=== PATIENT | female | born 1995 | race Caucasian/White ===

== ENCOUNTER 2019-05-26 14:46 | Outpatient (CLI) | payer OTHER ==
[~2019-05-26] VITALS: Ht 171.4 cm; Wt 97.9 kg
[2019-05-26] MEDS ORDERED: FLINCHW16 PO (15:14)
[2019-05-26 15:19] VITALS: BP 113/60
[2019-05-26 15:20] LABS: HEMOGLOBIN 11.2 g/dl (12.0-15.5); MEAN CORPUSCULAR HEMOGLOBIN 30.5 pg (27.0-33.0); MEAN CORPUSCULAR HGB CONC 32.9 g/dl (32.0-36.5); MEAN CORPUSCULAR VOLUME 92.6 fl (80.0-96.0); PLATELET COUNT, AUTOMATED 162 10^3/uL (150-450); RED BLOOD COUNT 3.67 10^6/uL (4.00-5.40); WHITE BLOOD COUNT 9.2 10^3/uL (4.0-10.0)
[2019-05-26 17:50] VITALS: BP 105/58
--- NOTE | 2019-05-26 17:52 | REP ---
HISTORY: Trauma. Multiple ultrasonographic images of the gravid uterus show a single living intrauterine gestation in the cephalic presentation. Doppler interrogation of the heart shows a heart rate of 161 beats per minute. The subjective amniotic fluid volume is within normal limits. Doppler interrogation of the umbilical artery shows an AB ratio of 2.29. This is just below the lower limit of normal at 2.35. The placenta is anterior and not low lying. The cervix measures 3.8 cm and is closed. The calculated amniotic fluid index is 13.0 with an expected range of 8.5 to 24.3. biophysical profile score: Breathing 2 Movement 2 Tone 2 AFV 2 Total 05/18 IMPRESSION: Limited OB ultrasound as described above, showing no evidence of an acute abnormality. Electronically Signed by Hernandez Lombardi DO 05/29/2019 12:39 P
--- NOTE | 2019-05-26 18:13 | IPNPDOC ---
Text Note Date of Service The patient was seen on 05/26/19. NOTE Outpatient 23yo E[place] 07/19/19. Presents @ 32w2d with reports of falling down the entire staircase. Denies bleeding or LOF. Fetus is active NAD VSS Abdomen soft, gravid, nontender BPP /, BETZAIDA 13.0, no evidence abruption or previa Cat I tracing CBC WNL, KB 0.0010. Blood type A+ Reviewed findings with Dr Covarrubias. OK for discharge home once meets criteria. Routine precautions. Appt next week NV VS,Fishbone, I+O VS, Fishbone, I+O Laboratory Tests 05/26/19 15:06 Red Blood Count 3.67 L, Mean Corpuscular Volume 92.6, Mean Corpuscular Hemoglobin 30.5, Mean Corpuscular Hemoglobin Concent 32.9, Red Cell Distribution Width 13.2 Vital Signs Date Time Temp Pulse Resp B/P (MAP) Pulse Ox O2 Delivery O2 Flow Rate FiO2 05/26/19 15:19 98.0 106 16 113/60 (77) Karey Silva CNM May 26, 2019 18:13
[2019-10-06] MEDS ORDERED: PORTTAB PO (09:05)
== END 2019-05-26 18:24 | disposition home or self-care (01) ==
LOC: MERGE 14:46 → M LDO 14:46
PROVIDERS: ATTEND Advanced Practice Midwife
DX: Z04.3 Encounter for examination and observation following other accident (principal); W10.8XXA Fall (on) (from) other stairs and steps, initial encounter; Y92.89 Other specified places as the place of occurrence of the external cause; Y93.89 Activity, other specified; Y99.8 Other external cause status; Z3A.32 32 weeks gestation of pregnancy

== ENCOUNTER → 2019-06-26 | Outpatient (REF) | payer OTHER ==
[~2019-06-26] MED LIST: FLINCHW16 PO
== END ==
LOC: M LAB REF 17:37
PROVIDERS: ATTEND Advanced Practice Midwife
DX: Z34.83 Encounter for supervision of other normal pregnancy, third trimester (principal)

== ENCOUNTER 2019-07-13 10:26 | Inpatient (IN) | payer OTHER ==
[2019-07-13] VITALS (12 sets, daily range): BP systolic 113–141; BP diastolic 56–81
[~2019-07-13] VITALS: Ht 171.4 cm; Wt 103.2 kg
[2019-07-13] MEDS: miSOPROStol 50 MCG 1/2 TAB (S0191) SL SCH ×3 (11:49→20:59)
--- NOTE | 2019-07-13 12:00 | HPE ---
DATE OF ADMISSION: 07/13/2019 23-year-old, G5, para 3 female at 39 and 1/7 weeks gestation by last menstrual period and consistent with 8 week ultrasound, estimated date of confinement (EDC) of 07/19/2019, presents for labor induction. She has occasional contractions. She denies vaginal bleeding. COURSE: The patient initiated care at 8 weeks gestation on 12/12/2018. First trimester blood pressure was 118/68, weight 163 pounds. She had no complications. OBSTETRICAL HISTORY: 1. June 2013, 40 week vaginal delivery, 8 pounds 3 ounce male. 2. July 2015, 39 week vaginal delivery, 7 pounds 14 ounce female . 3. 2016, 39 week vaginal delivery, 7 pounds 6 ounce female . 4. 01/2018 miscarriage. MEDICAL HISTORY: 1. Posttraumatic stress disorder (PTSD). SURGICAL HISTORY: 1. Tonsillectomy. ALLERGIES: None. SOCIAL HISTORY: The patient uses occasional marijuana. She smokes cigarettes. Denies alcohol or drug use. She is . FAMILY HISTORY: Noncontributory. PHYSICAL EXAMINATION: Blood pressure 130/82, pulse 84. No apparent distress. Head and neck exam normal. Lungs clear. Heart with regular rate and rhythm. Abdomen nontender, gravid. heart tones category 1. Contractions irregular. Sterile vaginal examination: 1 cm, 50%, -2, posterior, soft, vertex. Extremities: Nontender. LABORATORIES: Blood type A positive, Rubella immune, RPR nonreactive. Group B streptococcus (GBS) negative on 06/26/2019. ASSESSMENT AND PLAN: 23-year-old, 5, para 3 female at 39 and 1/7 weeks gestation presents for labor induction. Risks of induction were discussed. The patient was admitted on 07/13/2019.
[2019-07-13 12:09] LABS: HEMATOCRIT 33.4 % (36.0-47.0); HEMOGLOBIN 11.1 g/dl (12.0-15.5); MEAN CORPUSCULAR HGB CONC 33.2 g/dl (32.0-36.5); MEAN CORPUSCULAR VOLUME 90.3 fl (80.0-96.0); PLATELET COUNT, AUTOMATED 141 10^3/uL (150-450); WHITE BLOOD COUNT 7.4 10^3/uL (4.0-10.0)
[2019-07-13] MEDS: LR 1,000 ML IV SCH (16:28)
[2019-07-13] MEDS ORDERED: BUTORPHANOL 2 MG/ML INJ (J0595) IV ONE (21:00)
[2019-07-13] MEDS ORDERED: PROMETHAZINE INJ 25 MG/ML VIAL (J2550) IV ONE (21:00)
[2019-07-13] MEDS ORDERED: OXYTOCIN DRIP 30 UNITS in IV 1 EA IV SCH (23:00)
[2019-07-14] VITALS (55 sets, daily range): BP systolic 110–140; BP diastolic 57–83
[2019-07-14] MEDS: LR 1,000 ML IV SCH ×3 (01:06→13:09)
--- NOTE | 2019-07-14 08:11 | IPNPDOC ---
Text Note Date of Service The patient was seen on 07/14/19. NOTE Pt evaluated by Dr Satish Fox @ 18 UC 2-5 minutes apart x 45-60+ seconds, mild FH Cat I SVE 50/-2, anterior Dr Covarrubias reviewed options with patient and family, including discharge home. Will turn off pitocin, allow shower and breakfast then resume pitocin and AROM Pt and family verbalize understanding of slow progress and possible need for C/S if no progress. VS,Fishbone, I+O VS, Fishbone, I+O Laboratory Tests 07/13/19 11:55 Red Blood Count 3.70 L, Mean Corpuscular Volume 90.3, Mean Corpuscular Hemoglobin 30.0, Mean Corpuscular Hemoglobin Concent 33.2, Red Cell Distribution Width 13.4 Vital Signs Date Time Temp Pulse Resp B/P (MAP) Pulse Ox O2 Delivery O2 Flow Rate FiO2 07/14/19 07:16 89 122/61 (81) 07/14/19 07:14 98.3 20 98 I&O- Last 24 Hours up to 6 AM 07/14/19 06:00 Intake Total 1560 ml Output Total 2850 ml Balance -1290 ml Karey Silva CNM Jul 14, 2019 08:11
--- NOTE | 2019-07-14 09:27 | IPNPDOC ---
Text Note Date of Service The patient was seen on 07/14/19. NOTE Comfortable following shower and breakfast. Rare mild UC Cat I tracing SVE /-2, AROM small amount clear fluid Restart pitocin. Pain management options reviewed. Anticipate NSVB VS,Fishbone, I+O VS, Fishbone, I+O Laboratory Tests 07/13/19 11:55 Red Blood Count 3.70 L, Mean Corpuscular Volume 90.3, Mean Corpuscular Hemog lobin 30.0, Mean Corpuscular Hemoglobin Concent 33.2, Red Cell Distribution Width 13.4 Vital Signs Date Time Temp Pulse Resp B/P (MAP) Pulse Ox O2 Delivery O2 Flow Rate FiO2 07/14/19 07:16 89 122/61 (81) 07/14/19 07:14 98.3 20 98 I&O- Last 24 Hours up to 6 AM 07/14/19 06:00 Intake Total 1560 ml Output Total 2850 ml Balance -1290 ml Karey Silva CNM Jul 14, 2019 09:27
[2019-07-14] MEDS ORDERED: FENTANYL 2MCG/ML ROPIVACAINE 0.2% IN 0.9% NACL 100ML IVBAG As Ordered ONE (10:47)
[2019-07-14] MEDS ORDERED: REFRIGERATOR IV KEYS XX PRN (11:15)
[2019-07-14] MEDS ORDERED: ePHEDrine SULFATE 25 MG/5 ML(5MG/ML) SYRINGE IV PRN (11:15)
[2019-07-14] MEDS ORDERED: FENTANYL/ROPIVACAINE/NACL BAG 100 ML EPIDURAL SCH (11:15)
[2019-07-14] MEDS ORDERED: diphenhydrAMINE INJ 50MG/ML VIAL (J1200) IV PRN (11:15)
[2019-07-14] MEDS ORDERED: LACTATED RINGER'S 1000 ML IV PRN (11:15)
[2019-07-14] MEDS ORDERED: EPIDURAL COMMENT XX SCH (11:15)
[2019-07-14] MEDS ORDERED: EPIDURAL/PCA KEYS XX PRN (11:15)
[2019-07-14] MEDS ORDERED: ONDANSETRON 4MG/2ML VIAL (J2405) IV PRN (11:15)
[2019-07-14] MEDS ORDERED: NALOXONE INJ 0.4 MG/1 ML VIAL (J2310) IV PRN (11:15)
--- NOTE | 2019-07-14 15:57 | DNPDOC ---
[facility] Delivery Note Delivery Note DATE OF DELIVERY: 07/14/2019 PREDELIVERY DIAGNOSIS: 39-2/7 weeks' gestation and labor. POST DELIVERY DIAGNOSIS: Delivered. PROCEDURE: Spontaneous vaginal delivery. Provider: Karey Silva CNM ANESTHESIA: Epidural. ESTIMATED BLOOD LOSS:. 400 mL. FINDINGS: 8 pound 1 ounce, 3650 g female infant, Score, 8/9, no nuchal cord. DELIVERY SUMMARY: Patient is a 23-year-old 5 now para 4 -0 -1-4 who was admitted to labor and delivery for, elective induction of labor. She received misoprostol orally and IV Pitocin and labor did ensue. She utilized an epidural for labor coping. Labor was augmented by artificial rupture of the membranes, clear fluid. Fully dilated at 1512. Viable female child delivered without difficulty GOYO, restitution to LOP at 1522. Spontaneous respirations with stimulation. Transitioned on maternal abdomen. Cord doubly clamped and cut by the father of the baby under my direction when pulsations ceased. Apgars 8 and 9. Placenta delivered Calero and intact with three-vessel cord at 1536. Fundus firmed with massage and IV Pitocin bolus. Estimated blood loss 400 mL. Perineum, vagina and cervix inspected, noted to be intact. Sponge, sharp and instrument count correct. Parents are naming their daughter Osmin. Karey Silva CNM Jul 14, 2019 15:57
[2019-07-14] MEDS ORDERED: MOM 30ML SUSPENSION UDC PO PRN (16:00)
[2019-07-14] MEDS ORDERED: IBUPROFEN 600 MG TAB PO PRN (16:00)
[2019-07-14] MEDS ORDERED: RHOGAM 300 MCG (1500 IU) INJ (J2790) IM SCH (16:00)
[2019-07-14] MEDS ORDERED: ACETAMINOPHEN 500 MG TAB PO PRN (16:00)
[2019-07-14] MEDS ORDERED: ANUSOL HC CREAM 30GM TOP PRN (16:00)
[2019-07-14] MEDS ORDERED: DIBUCAINE 1% OINTMENT 30GM TOP PRN (16:00)
[2019-07-14] MEDS ORDERED: MEASLES,MUMPS,RUBELLA VACCINE INJ (MMR-II) (90707) SC SCH (16:00)
[2019-07-14] MEDS ORDERED: DOCUSATE SODIUM 100 MG CAP PO PRN (16:00)
[2019-07-14] MEDS ORDERED: METHYLERGONOVINE MALEATE 0.2 MG TAB PO PRN (16:00)
[2019-07-14] MEDS ORDERED: ACETAMINOPHEN TAB 650MG DOSE (2X325MG) PO PRN (16:00)
[2019-07-14] MEDS ORDERED: IBUPROFEN 800 MG TAB PO PRN (16:00)
[2019-07-14] MEDS ORDERED: SLF 3 ML SYR IV PRN (17:00)
[2019-07-14] MEDS: SLF 3 ML SYR IV SCH (22:25)
[2019-07-15 05:50] VITALS: BP 125/83
[2019-07-15] MEDS: SLF 3 ML SYR IV SCH ×2 (06:05→14:00)
[2019-07-15] MEDS ORDERED: PRENATAL VITAMINS CHEWABLE TABLET PO SCH (09:00)
== END 2019-07-15 17:15 | disposition home or self-care (01) | DRG 560 ==
LOC: M LDI 10:26 → M OBS 07-14 18:27
PROVIDERS: ADMIT Specialist; ATTEND Advanced Practice Midwife
PROC: 10E0XZZ Delivery of Products of Conception, External Approach (ICD-10-PCS; principal; 2019-07-14)
PROC: 3E0P7GC Introduction of Other Therapeutic Substance into Female Reproductive, Via Natural or Artificial Opening (ICD-10-PCS; 2019-07-14)
PROC: 10907ZC Drainage of Amniotic Fluid, Therapeutic from Products of Conception, Via Natural or Artificial Opening (ICD-10-PCS; 2019-07-14)
DX: O99.334 Smoking (tobacco) complicating childbirth (principal); F17.210 Nicotine dependence, cigarettes, uncomplicated; Z3A.39 39 weeks gestation of pregnancy; Z37.0 Single live birth; F43.10 Post-traumatic stress disorder, unspecified

== ENCOUNTER 2019-10-20 06:50 | Day surgery (SDC) | payer OTHER ==
[~2019-10-20] VITALS: Ht 170.2 cm; Wt 98.8 kg
[~2019-10-20 06:50] MED LIST changes: +LR 1,000 ML IV ONE; +PORTTAB PO
[2019-10-20 07:28] LABS: HEMATOCRIT 43.5 % (36.0-47.0); HEMOGLOBIN 13.6 g/dl (12.0-15.5); MEAN CORPUSCULAR HGB CONC 31.3 g/dl (32.0-36.5); MEAN CORPUSCULAR VOLUME 89.7 fl (80.0-96.0); PLATELET COUNT, AUTOMATED 226 10^3/uL (150-450); RED BLOOD COUNT 4.85 10^6/uL (4.00-5.40); WHITE BLOOD COUNT 7.4 10^3/uL (4.0-10.0)
[2019-10-20] MEDS ORDERED: SCOPOLAMINE 1MG TRANSDERMAL PATCH As Ordered ONE (08:00)
[2019-10-20] MEDS ORDERED: LIDOCAINE 2% INJ 100 MG/5 ML SDV (FOR ANES.) As Ordered ONE (08:09)
[2019-10-20] MEDS ORDERED: MIDAZOLAM INJ 2 MG/2 ML VIAL (J2250) As Ordered ONE (08:09)
[2019-10-20] MEDS ORDERED: dexameTHASONE 4 MG/ML 1ML VIAL (J1100) As Ordered ONE (08:09)
[2019-10-20] MEDS ORDERED: ONDANSETRON 4MG/2ML VIAL (J2405) As Ordered ONE (08:09)
[2019-10-20] MEDS ORDERED: ROCURONIUM BROMIDE 50 MG/5 ML VIAL As Ordered ONE (08:09)
[2019-10-20] MEDS ORDERED: propofoL 200 MG/20 ML VIAL As Ordered ONE (08:09)
[2019-10-20] MEDS ORDERED: fentaNYL 100 MCG/2 ML INJECTION (J3010) As Ordered ONE ×2 (08:09→09:20)
[2019-10-20] MEDS ORDERED: BUPIVACAINE HCL 0.25% 10 ML VIAL As Ordered ONE (08:50)
[2019-10-20] MEDS ORDERED: SCOPOLAMINE 1MG TRANSDERMAL PATCH TOP ONE (09:00)
[2019-10-20] MEDS ORDERED: OXYC1TAB23 PO (09:16)
[2019-10-20] MEDS ORDERED: IBUP-1022 PO (09:17)
[2019-10-20] MEDS ORDERED: KETOROLAC 60 MG/2 ML VIAL (J1885) As Ordered ONE (09:18)
[2019-10-20] MEDS ORDERED: ACETAMINOPHEN 1000MG 100ML IV BTL (OFIRMEV) (J0131 PER 10MG) As Ordered ONE (09:18)
[2019-10-20] MEDS ORDERED: GLYCOPYRROLATE INJ 0.2 MG/ML 2 ML VIAL As Ordered ONE (09:25)
[2019-10-20] MEDS ORDERED: ESMOLOL INJ 100MG/10ML VIAL As Ordered ONE (09:31)
[2019-10-20] MEDS ORDERED: SUGAMMADEX SODIUM 500 MG/5 ML VIAL (BRIDION) As Ordered ONE (09:36)
[2019-10-20] MEDS ORDERED: LR 1,000 ML IV SCH ×2 (11:00→12:00)
[2019-10-20] MEDS ORDERED: fentaNYL 100 MCG/2 ML INJECTION (J3010) IV PRN (11:00)
[2019-10-20] MEDS ORDERED: oxyCODONE 5MG TAB PO PRN (11:00)
[2019-10-20] MEDS ORDERED: ONDANSETRON 4MG/2ML VIAL (J2405) IV PRN (11:00)
[2019-10-20 11:33] VITALS: BP 133/74
[2019-10-20] MEDS ORDERED: PERCOCET 5MG/325MG TAB PO PRN (12:00)
[2019-10-20] MEDS ORDERED: KETAMINE HCL 200 MG/20 ML VIAL As Ordered ONE (12:52)
--- NOTE | 2019-10-20 20:38 | RO ---
DATE OF PROCEDURE: 10/20/2019 PREPROCEDURE DIAGNOSIS: Undesired fertility. POSTPROCEDURE DIAGNOSIS: Undesired fertility. PROCEDURE: Laparoscopic bilateral salpingectomy. SURGEON: Jono Covarrubias MD [employer] TUG MATE: ANESTHESIA: General endotracheal. ESTIMATED BLOOD LOSS: 10 mL URINE OUTPUT: 200 mL. FINDINGS: Normal uterus, fallopian tubes, ovaries. Normal upper abdomen, including liver, stomach and intestines. DESCRIPTION OF PROCEDURE: The patient was taken to the operating room where general endotracheal anesthesia was induced. She was prepped and draped in a sterile fashion in the dorsal lithotomy position. A sponge stick was placed in the vagina to use as a manipulator. A King catheter was placed. A periumbilical incision was made with a scalpel. A Veress needle was placed through this incision while tenting up on the skin of the abdomen. Intraabdominal location of the Veress needle was assessed with the use of a saline-filled syringe. Pneumoperitoneum was created. The Veress needle was removed. 5 mm trocar using Visiport was inserted through this incision. A 5 mm and an 8 mm suprapubic port were placed under direct visualization. The fallopian tubes were grasped and elevated. LigaSure device used to coagulate and incise broad ligament attachments to each tube. Tubes were amputated near their origin. Both tubes were removed through the suprapubic ports. The pneumoperitoneum was released. All instruments were removed. Sponge, instrument and needle counts were correct. The skin was closed with #4-0 Monocryl subcuticular sutures. The patient was extubated and went to the recovery room in stable condition.
== END 2019-10-20 11:37 | disposition home or self-care (01) ==
LOC: M SDC 06:50
PROVIDERS: ATTEND Specialist
DX: Z30.2 Encounter for sterilization (principal); Z87.891 Personal history of nicotine dependence; F41.9 Anxiety disorder, unspecified; F32.9 Major depressive disorder, single episode, unspecified; F43.10 Post-traumatic stress disorder, unspecified
CPT/HCPCS: 36415; 58661; 81025; 85027; 88302; J0131; J1100; J1885; J2250; J2405; J3010

== ENCOUNTER 2022-05-13 08:48 | Emergency (ER) | payer OTHER ==
[~2022-05-13] VITALS: Ht 170.2 cm; Wt 102.1 kg
[~2022-05-13 08:48] MED LIST changes: +IBUP-1022 PO; -LR 1,000 ML IV ONE; +OXYC1TAB23 PO
[2022-05-13] MEDS ORDERED: METH-1164 PO (14:04)
[2022-05-13 14:27] VITALS: BP 144/92
[2022-05-13] MEDS ORDERED: LIDO5DIS41 TOP (14:38)
[2022-05-13] MEDS ORDERED: LIDOCAINE 5% (LIDODERM) PATCH TD ONE (14:40)
[2022-05-14] MEDS ORDERED: **NOTE PATIENT COMMENT** MISC XX ONE (03:00)
== END 2022-05-13 15:02 | disposition home or self-care (01) ==
LOC: M ED 08:48
DX: S50.12XA Contusion of left forearm, initial encounter (principal); S13.4XXA Sprain of ligaments of cervical spine, initial encounter; V49.40XA Driver injured in collision with unspecified motor vehicles in traffic accident, initial encounter; Y92.410 Unspecified street and highway as the place of occurrence of the external cause